=== PATIENT | male | born 1955 | race Caucasian/White ===

== ENCOUNTER 2018-03-02 05:19 | Inpatient (IN) | payer OTHER ==
[2018-03-02] MEDS: traMADol 50 MG TAB PO (06:04)
[2018-03-02] MEDS: GABAPENTIN 300 MG CAP PO ×2 (06:04→20:50)
[2018-03-02] MEDS: DEXAMETHASONE 1 MG TAB PO (06:05)
[2018-03-02] MEDS: POLYMYXIN/BACITRACIN 1L IRRIG (06:52)
[2018-03-02] MEDS ORDERED: GLYCOPYRROLATE 0.4 MG INJ (06:59)
[2018-03-02] MEDS ORDERED: NEOSTIGMINE 3 MG/3 ML SYRINGE (06:59)
[2018-03-02] MEDS ORDERED: PROPOFOL 20 ML (06:59)
[2018-03-02] MEDS ORDERED: CEFAZOLIN 1 GM INJ (06:59)
[2018-03-02] MEDS ORDERED: ROCURONIUM 50 MG INJ (06:59)
[2018-03-02] MEDS ORDERED: FENTAnyl 50 MCG/ML VIAL (07:01)
[2018-03-02] MEDS ORDERED: ONDANSETRON 4 MG INJ (07:01)
[2018-03-02] MEDS ORDERED: morphine SULFATE/PF (10 MG/10 ML) INJ (07:01)
[2018-03-02] MEDS ORDERED: MIDAZOLAM 1 MG/ML 2 ML INJ (07:01)
[2018-03-02] MEDS ORDERED: DEXAMETHASONE 4 MG/ML 1 ML INJ (07:01)
[2018-03-02] MEDS ORDERED: BUPIVACAINE 0.75%/DEXT (SPINAL) 2 ML INJ (07:06)
[2018-03-02] MEDS: CEFAZOLIN 2 GM/50 ML (PMX) 50 ML IVPB (07:12)
[2018-03-02] MEDS: TRANEXAMIC ACID 1,000 MG in DEXTROSE 5% 100 ML IVPB (07:30)
[2018-03-02] MEDS ORDERED: BUPIVACAINE 0.5% (SDV) 30 ML, morphine SULFATE (PF) 8 MG, EPINEPHrine 0.3 MG, KETOROLAC... IRR (07:30)
[2018-03-02] MEDS ORDERED: THROMBIN 5000 UNIT VIAL (07:49)
[2018-03-02] MEDS ORDERED: CA CHLORIDE 10% 10 ML SYRINGE (07:49)
[2018-03-02] MEDS ORDERED: POLYMYXIN/BACITRACIN 1L IRRIG (07:49)
[2018-03-02] MEDS ORDERED: SOD CHLORIDE 0.9% 100 ML, TRANEXAMIC ACID 3,000 MG IRR (08:00)
[2018-03-02] MEDS ORDERED: DIPHENHYDRAMINE 50 MG INJ IV (09:00)
[2018-03-02] MEDS ORDERED: ONDANSETRON 4 MG INJ IV (09:00)
[2018-03-02] MEDS ORDERED: ACETAMINOPHEN 500 MG TAB PO (09:00)
[2018-03-02] MEDS ORDERED: MAGNESIUM HYDROXIDE 30ML CUP PO (09:00)
[2018-03-02] MEDS ORDERED: KETOROLAC 15 MG INJ IV (09:00)
[2018-03-02] MEDS ORDERED: OXYCODONE/ACETAMINOPHEN (5/325) TAB PO (09:00)
[2018-03-02] MEDS ORDERED: morphine 2 MG INJ IV ×2 (09:00)
[2018-03-02] MEDS ORDERED: ZOLPIDEM 5 MG TAB PO (09:00)
[2018-03-02] MEDS ORDERED: SUGAMMADEX SODIUM 200 MG/2 ML VIAL IV (09:02)
[2018-03-02] MEDS: CEFAZOLIN 1 GM/50 ML (PMX) 50 ML IVPB ×2 (09:44→17:16)
[2018-03-02] MEDS: LACTATED RINGER'S 1,000 ML IV ×2 (09:46→19:50)
[2018-03-02] MEDS: TRANEXAMIC ACID 1,000 MG in DEXTROSE 5% 100 ML IV (10:02)
[2018-03-02 11:54] LABS: ADD MAN DIFF? NO
[2018-03-02 12:10] LABS: ABNORMAL IP MESSAGE 1; BASOPHILS % 0.2 % (0.0-2.0); EOSINOPHILS % 0.1 % (0.0-7.0); HEMATOCRIT 36.7 % (42.0-52.0); HEMOGLOBIN 12.6 g/dl (14.0-18.0); LYMPHOCYTES # 0.4 10^3/ul (0.8-2.9); LYMPHOCYTES % 3.2 % (15.0-51.0); MEAN CORPUSCULAR HEMOGLOBIN 29.1 pg (29.0-33.0); MEAN CORPUSCULAR HGB CONC 34.3 g/dl (32.0-37.0); MEAN CORPUSCULAR VOLUME 84.8 fl (82.0-101.0); MEAN PLATELET VOLUME 9.3 fl (7.4-10.4); MONOCYTE # 0.3 10^3/ul (0.3-0.9); MONOCYTES % 2.7 % (0.0-11.0); NEUTROPHIL # 11.2 10^3/ul (1.6-7.5); PLATELET COUNT 301 10^3/UL (140-415); POSITIVE DIFF @See below; RED BLOOD COUNT 4.33 10^6/ul (4.70-6.10); RED CELL DISTRIBUTION WIDTH 13.1 % (11.5-14.5)
[2018-03-02] MEDS: DEXAMETHASONE 2 MG TAB PO ×2 (12:15→17:16)
[2018-03-02] MEDS: SENNA/DOCUSATE NA (8.6MG/50MG) TAB PO ×2 (12:44→20:50)
[2018-03-02] MEDS: OXYCODONE/ACETAMINOPHEN (5/325) TAB PO (19:50)
[2018-03-03] MEDS: CEFAZOLIN 1 GM/50 ML (PMX) 50 ML IVPB (00:11)
[2018-03-03] MEDS: DEXAMETHASONE 2 MG TAB PO ×2 (00:11→05:12)
[2018-03-03] MEDS: LACTATED RINGER'S 1,000 ML IV ×2 (04:52→05:17)
[2018-03-03 05:40] LABS: ADD MAN DIFF? NO
[2018-03-03 05:46] LABS: ABNORMAL IP MESSAGE 1; BASOPHILS % 0.1 % (0.0-2.0); HEMOGLOBIN 11.4 g/dl (14.0-18.0); LYMPHOCYTES # 0.6 10^3/ul (0.8-2.9); LYMPHOCYTES % 4.5 % (15.0-51.0); MEAN CORPUSCULAR HEMOGLOBIN 28.9 pg (29.0-33.0); MEAN CORPUSCULAR HGB CONC 33.5 g/dl (32.0-37.0); MEAN CORPUSCULAR VOLUME 86.1 fl (82.0-101.0); MEAN PLATELET VOLUME 9.4 fl (7.4-10.4); MONOCYTES % 7.6 % (0.0-11.0); NEUTROPHIL # 11.4 10^3/ul (1.6-7.5); PLATELET COUNT 297 10^3/UL (140-415); POSITIVE DIFF @See below; RED BLOOD COUNT 3.95 10^6/ul (4.70-6.10); RED CELL DISTRIBUTION WIDTH 12.8 % (11.5-14.5)
[2018-03-03 05:46] LABS: WHITE BLOOD COUNT 13.1 10^3/ul (4.8-10.8)
[2018-03-03] MEDS: SENNA/DOCUSATE NA (8.6MG/50MG) TAB PO (08:33)
[2018-03-03] MEDS: OXYCODONE/ACETAMINOPHEN (5/325) TAB PO ×2 (08:53→12:46)
[2018-03-03] MEDS: ASPIRIN 81 MG TAB PO (08:54)
== END 2018-03-03 13:10 | disposition home or self-care (01) | DRG 470 ==
LOC: REC 05:19 → MS1 10:52
PROVIDERS: Orthopaedic Surgery
PROC: 0SRB04A Replacement of Left Hip Joint with Ceramic on Polyethylene Synthetic Substitute, Uncemented, Open Approach (ICD-10-PCS; principal; 2018-03-02 06:59)
DX: M16.12 Unilateral primary osteoarthritis, left hip (principal)
CPT/HCPCS: 72170; 73530; 85025; 86850; 86900; 86901; 86999; 87086; 97161